=== PATIENT | male | born 1985 | race Caucasian/White ===

== ENCOUNTER 2020-03-12 14:30 | Emergency (ER) | payer OTHER, SELFPAY ==
[2020-03-12 14:32] VITALS: BP 155/96; PULSE 108; RESP 20; TEMP 36.6; O2SAT 98
--- NOTE | 2020-03-12 15:28 | ED.BACK ---
HPI - Back Pain/Injury General Chief Complaint: Back Pain/Injury Stated Complaint: PAIN IN LEFT SIDE Time Seen by Provider: 03/12/20 15:14 Source: patient Mode of arrival: ambulatory Limitations: no limitations History of Present Illness HPI Narrative: A 35-year-old male presents to the emergency department with complaints of low back pain. Patient motions that it is more in the left flank. He points to the lower end of his ribs. Patient denies any trauma. He states that he is not sure if it is related to any medications that he has been taking. Patient notes that he was recently started on prazosin. He denies any urinary symptoms. Denies any radiation of the pain. Patient also denies taking any medications at home for the pain. Related Data Home Medications Medication Instructions Recorded Confirmed prazosin 1 mg PO DAILY 03/12/20 03/12/20 sertraline 50 mg PO DAILY 03/12/20 03/12/20 Allergies Allergy/AdvReac Type Severity Reaction Status Date / Time No Known Allergies Allergy Verified 03/12/20 14:35 Review of Systems Review of Systems: Narrative: CONSTITUTIONAL: Denies fever, chills, or sweats. Morbidly obese. EYES: Denies visual changes, redness, or discharge. ENT: Denies rhinorrhea, congestion, sore throat, or otalgia. CARDIOVASCULAR: Denies chest pain, palpitations, or edema. RESPIRATORY: Denies cough or dyspnea. GASTROINTESTINAL: Denies abdominal pain, nausea, vomiting, or diarrhea. GENITOURINARY: Denies dysuria or hematuria. SKIN: Denies rash or itching. MUSCULOSKELETAL: Denies back pain, joint pain, or myalgia. NEUROLOGIC: Denies headache, numbness, dizziness, or weakness. PSYCHIATRIC: Denies anxiety or depression. [facility] Social History Social History Gender identity (if verbalized by the patient): Male Exam Narrative: Exam Narrative: GENERAL: Well-appearing, well-nourished, and in no acute distress. HEAD: Normocephalic, atraumatic. EYES: PERRLA and EOMI. ENT: Nares clear, no rhinorrhea or epistaxis. Mucous membranes moist. Oropharynx without tonsillar hypertrophy exudate or other lesions. Bilateral TMs pearly myers nonbulging NECK: Supple. No adenopathy or masses. No carotid bruits or JVD CHEST: Clear to auscultation. No respiratory distress. No wheezes rales or rhonchi HEART: Regular rate and rhythm. No murmur heard. Normal peripheral pulses. ABDOMEN: Soft, nontender, nondistended, normal active bowel sounds. Tenderness to palpation on the lower midaxillary ribs on the left. EXTREMITIES: Normal range of motion. No edema. SKIN: Warm, dry, no rash. NEURO: No focal deficits. Alert and oriented x3. PSYCH: Normal mood and affect. Course Reevaluation(s) Reevaluation #1: Reevaluated patient provided care update. He noted that he is feeling somewhat better after the pain medicines. He was napping comfortably in the room. Discussed at length treatment plan. Patient states that he has quit drinking, has quit smoking weed and is trying to turn his life around. Patient encouraged and told to keep it up. Recommended that he follow-up with his primary care physician and psychiatrist. Time: 16:52 Vital Signs Vital signs: Vital Signs Temperature 36.6 C 03/12/20 14:32 Pulse Rate 108 H 03/12/20 14:32 Respiratory Rate 20 03/12/20 14:32 Blood Pressure 155/96 H 03/12/20 14:32 Pulse Oximetry 98 03/12/20 14:32 Temperature 36.6 C 03/12/20 14:32 Pulse Rate 108 H 03/12/20 14:32 Respiratory Rate 20 03/12/20 14:32 Blood Pressure 155/96 H 03/12/20 14:32 Pulse Oximetry 98 03/12/20 14:32 MDM - Back Pain/Injury MDM Narrative Medical decision making narrative: In brief this 35-year-old male presented to the emergency department with complaints of low back pain. Patient motions that is more out on his side. Work-up ensued and does not show any signs of kidney stone nor kidney dysfunction. Patient will be treated with anti-infl
[2020-03-12] MEDS: KETOROLAC 15 MG/ML VIAL (*BKC) IV PUSH (16:11)
[2020-03-12 16:12] LABS: Basophils Absolute Auto 0.1 K/mm3 (0.0-0.1); Basophils Percent Auto 0.4 % (0.2-1.2); Eosinophils Absolute Auto 0.2 K/mm3 (0-0.3); Hematocrit 44.5 % (42.0-52.0); Hemoglobin 14.8 g/dL (14.0-18.0); Immature Granulocyte Absolute 0.12 K/mm3 (0.00-0.031); Immature Granulocyte Percent A 0.7 % (0-0.5); Lymphocytes Absolute Auto 3.96 K/mm3 (0.9-3.2); Lymphocytes Percent Auto 24.4 % (18.3-44.2); Mean Corpuscular HGB Conc 33.3 g/dl (32-36); Mean Corpuscular Volume 84.1 fl (80-100); Mean Platelet Volume 9.8 fl (7.4-10.4); Monocytes Absolute Auto 1.2 K/mm3 (0.1-0.6); Monocytes Percent Auto 7.2 % (2.6-8.5); Neutrophils Absolute Auto 10.7 K/mm3 (1.3-6.7); Neutrophils Percent Auto 66.3 % (45.5-73.1); Platelet Count Result 334 k/mm3 (150-375); Red Blood Count 5.29 M/mm3 (4.6-6.20); White Blood Count 16.2 K/mm3 (4.5-10.0)
[2020-03-12 16:16] LABS: Add Urine Microscopic? YES; Appearance Urine Clear (Clear); Bacteria Urine Trace /hpf; Bilirubin Urine Negative (Negative); Blood Urine Negative (Negative); Color Urine Yellow (Yellow); Glucose Urine UA Negative (Negative); Ketones Urine Negative (Negative); Leukocyte Esterase Ur Negative LEU/UL (Negative); Mucus Urine Few /lpf; Nitrate Urine Negative (Negative); Protein Urine Negative (Negative); RBC Urine 0-2 /hpf (0-2); Specific Grav Ur 1.019 (1.001-1.035); Squamous Epithelial Cell Urine Rare /hpf (Few); Urobilinogen Urine Negative mg/dL (<2.0); WBC Urine 0-3 /hpf
[2020-03-12 16:22] LABS: Anion Gap 8 mmol/L (8-16); Blood Urea Nitrogen 13 mg/dL (9-20); Calcium 9.4 mg/dL (8.4-10.2); Carbon Dioxide 27 mmol/L (22-30); Chloride 104 mmol/L (98-107); Estimated CRCL calculation 153 ml/min; Estimated Glomerular Filt Rate > 60; Glucose 96 mg/dL (75-110); Potassium 4.4 mmol/L (3.4-5.0); Sodium 139 mmol/L (137-145)
== END 2020-03-12 17:15 | disposition home or self-care (01) ==
PROVIDERS: Emergency Provider Emergency Medicine; Family Provider Family Medicine; PCP Internal Medicine
DX: S39.012A Strain of muscle, fascia and tendon of lower back, initial encounter (principal); E66.01 Morbid (severe) obesity due to excess calories; Z68.42 Body mass index [BMI] 45.0-49.9, adult; X58.XXXA Exposure to other specified factors, initial encounter
CPT/HCPCS: 36415; 80048; 81001; 85025; 96374; 99284; J1885